=== PATIENT | male | born 1955 | race Caucasian/White ===

== ENCOUNTER 2018-10-09 17:23 | Emergency (ER) | payer MEDICARE ==
[~2018-10-09] VITALS: Ht 170.2 cm; Wt 81.6 kg
--- NOTE | 2018-10-09 17:54 | PHYS DOC ---
Past Medical History Past Medical History: Other Additional Past Medical Histor: blood clots (TON APARICIO) Past Surgical History: No Surgical History (TON APARICIO) Alcohol Use: Heavy Drug Use: None (TON APARICIO) Adult General Chief Complaint Chief Complaint: UPPER EXTREMITY INJURY HPI HPI Patient is a 62 year old female presents to the ED complaining of left elbow injury times one hour ago. Patient states he was working in the yard and tripped over a pick in the yard. States he landed on his left elbow. Describes his pain as sharp. Rates the pain as 7 out of 10. States he has pain with full extension. Denies fever, head/neck injury, LOC, vision changes, difficulty walking, nausea/vomiting, symptoms prior to fall. (TON APARICIO) Review of Systems Review of Systems Constitutional: Denies fever or chills [] Eyes: Denies change in visual acuity, redness, or eye pain [] HENT: Denies nasal congestion or sore throat [] Respiratory: Denies cough or shortness of breath [] Cardiovascular: No additional information not addressed in HPI [] GI: Denies abdominal pain, nausea, vomiting, bloody stools or diarrhea [] : Denies dysuria or hematuria [] Musculoskeletal: Complains of elbow injury. Denies back pain. Integument: Denies rash or skin lesions [] Neurologic: Denies headache, focal weakness or sensory changes [] All other systems were reviewed and found to be within normal limits, except as documented in this note. (TON APARICIO) Allergies Allergies Allergies Coded Allergies Type Severity Reaction Last Updated Verified No Known Drug Allergies 03/21/14 No (DANIELLE OSUNA DO) Physical Exam Physical Exam Constitutional: Well developed, well nourished, no acute distress, non-toxic appearance. [] HENT: Normocephalic, atraumatic. Neck: Normal range of motion, no tenderness, supple, no stridor. [] Cardiovascular:Heart rate regular rhythm, no murmur [] Lungs & Thorax: Bilateral breath sounds clear to auscultation [] Skin: Warm, dry, no erythema, no rash. [] Back: No tenderness, no CVA tenderness. [] Extremities: mild left posterior elbow tenderness/swelling, no cyanosis, no clubbing, Pain with full extension of left elbow. no edema. No abrasion or laceration.[] Neurologic: Alert and oriented X 3, normal motor function, normal sensory function, no focal deficits noted. [] Psychologic: Affect normal, judgement normal, mood normal. [] (TON APARICIO) Current Patient Data Vital Signs Vital Signs Date Time Temp Pulse Resp B/P (MAP) Pulse Ox O2 Delivery O2 Flow Rate FiO2 10/09/18 18:38 99.1 79 16 128/74 (92) 96 Room Air 99.1 (DANIELLE OSUNA DO) EKG EKG [] (TON APARICIO) Radiology/Procedures Radiology/Procedures []PROCEDURE: ELBOW LEFT 3V Left elbow x-rays 3 views HISTORY: Left elbow injury. FINDINGS: Dystrophic calcification posterior of the humerus could be due to triceps brachii tendinopathy lobe which is soft tissue swelling of the posterior elbow overlying the olecranon which could be traumatic or due to tendon injury or infection. Slight elevation of the fat pads which could indicate the presence of a joint effusion. Small spur of the ulna olecranon. Small well-defined ossicle lateral humeral epicondyles could be reflective of chronic tendinitis. No fracture or dislocation evident. IMPRESSION: 1. No fracture evident. There is mild elevation of the fat pads suggesting the presence of a joint effusion, and a radiographically occult hairline fracture attributable for this effusion is not excluded. 2. Posterior elbow soft tissue swelling overlying the ulna olecranon and triceps brachii tendon could be posttraumatic, tendon injury or infectious. There is dystrophic calcification of the tendon likely indicating tendinosis. (TON APARICIO) Course & Med Decision Making Course & Med Decision Making Pertinent Labs and Imaging studies reviewed. (See chart for details) []Discussed imaging findings with patient. Patient's pain improved in the ED. Splint placed. NV intact post placement. Discussed follow-up with orthopedics early next week. Provided contact information/education. Discussed reasons to return to the ED. Patient understands and agrees with plan. (TON APARICIO) Dragon Disclaimer Dragon Disclaimer This electronic medical record was generated, in whole or in part, using a voice recognition dictation system. (TON APARICIO) Departure Departure Impression: Primary Impression: Elbow fracture, left Disposition: 01 HOME, SELF-CARE Condition: IMPROVED Referrals: MIRTA DOBBS MD (PCP) JEFFRY HERNANDEZ MD Patient Instructions: Elbow Fracture, Simple Scripts Hydrocodone/Apap 5-325 (NORCO 5-325 TABLET) 1 Each Tablet 1 TAB PO BID for 5 Days, #10 TAB Prov: TON APARICIO 10/09/18 Attending Signature Attending Signature I have reviewed the PA/[employer] OFFICER's note and plan of care. I was available for consultation as needed during the patient's visit in the emergency department. I agree with the clinical impression, plan, and disposition. (DANIELLE OSUNA DO) TON APARICIO Oct 09, 2018 17:54 DANIELLE OSUNA DO Oct 13, 2018 15:14
--- NOTE | 2018-10-09 18:12 | RAD ---
Left elbow x-rays 3 views HISTORY: Left elbow injury. FINDINGS: Dystrophic calcification posterior of the humerus could be due to triceps brachii tendinopathy lobe which is soft tissue swelling of the posterior elbow overlying the olecranon which could be traumatic or due to tendon injury or infection. Slight elevation of the fat pads which could indicate the presence of a joint effusion. Small spur of the ulna olecranon. Small well-defined ossicle lateral humeral epicondyles could be reflective of chronic tendinitis. No fracture or dislocation evident. IMPRESSION: 1. No fracture evident. There is mild elevation of the fat pads suggesting the presence of a joint effusion, and a radiographically occult hairline fracture attributable for this effusion is not excluded. 2. Posterior elbow soft tissue swelling overlying the ulna olecranon and triceps brachii tendon could be posttraumatic, tendon injury or infectious. There is dystrophic calcification of the tendon likely indicating tendinosis. Electronically signed by: Brendan Roe MD (10/09/2018 6:09 PM) [facility]
[2018-10-09] MEDS ORDERED: HYDR-3164 PO (18:24)
[2018-10-09 18:38] VITALS: BP 128/74
== END 2018-10-09 18:50 | disposition home or self-care (01) ==
LOC: ER 17:23
DX: S42.402A Unspecified fracture of lower end of left humerus, initial encounter for closed fracture (principal); F10.20 Alcohol dependence, uncomplicated; Y90.9 Presence of alcohol in blood, level not specified; W22.8XXA Striking against or struck by other objects, initial encounter; Y93.89 Activity, other specified; Y92.096 Garden or yard of other non-institutional residence as the place of occurrence of the external cause; Y99.8 Other external cause status
CPT/HCPCS: 29105; 73080; 99284-25

== ENCOUNTER 2019-11-20 15:18 | Inpatient (IN) | payer MEDICARE ==
[2019-11-20] VITALS (9 sets, daily range): BP systolic 121–166; BP diastolic 64–92
[~2019-11-20] VITALS: Ht 170.2 cm; Wt 77.8 kg
[~2019-11-20 15:18] MED LIST: HYDR-3164 PO
[2019-11-20 15:57] LABS: BASO # 0.1 x10^3/uL (0.0-0.2); BASO % 1 % (0-3); EOS # 0.1 x10^3/uL (0.0-0.7); EOS % 1 % (0-3); HEMATOCRIT 39.7 % (39.0-53.0); HEMOGLOBIN 13.9 g/dL (13.0-17.5); LYMPH # 1.6 x10^3/uL (1.0-4.8); LYMPH % 33 % (24-48); MEAN CORPUSCULAR HEMOGLOBIN 37 pg (25-35); MEAN CORPUSCULAR HGB CONC 35 g/dL (31-37); MEAN CORPUSCULAR VOLUME 107 fL (79-100); MONO # 0.6 x10^3/uL (0.0-1.1); MONO % 11 % (0-9); NEUT # 2.7 x10^3/uL (1.8-7.7); NEUT % 54 % (31-73); PLATELET COUNT 167 x10^3/uL (140-400); RED BLOOD COUNT 3.71 x10^6/uL (4.30-5.70)
[2019-11-20 16:03] LABS: CREATININE 1.2 mg/dL (0.7-1.3); GFR 61.1; POTASSIUM 3.9 mmol/L (3.5-5.1)
[2019-11-20 16:04] LABS: PROTHROMBIN TIME PATIENT 13.4 SEC (11.7-14.0)
[2019-11-20 16:07] LABS: D-DIMER 1.26 ug/mlFEU (0.00-0.50)
[2019-11-20 16:09] LABS: ALBUMIN 3.2 g/dL (3.4-5.0); ALBUMIN/GLOBULIN RATIO 0.7 (1.0-1.7); TOTAL BILIRUBIN 0.5 mg/dL (0.2-1.0); TOTAL PROTEIN 7.8 g/dL (6.4-8.2)
[2019-11-20] MEDS ORDERED: dilTIAZem IV PUSH 25 MG/5 ML VIAL IVP ONE (17:00)
[2019-11-20] MEDS ORDERED: DILTIAZEM HCL 125 MG in IV NORMAL SALINE 100ML 100 ML IV PRN (17:00)
--- NOTE | 2019-11-20 17:05 | PHYS DOC ---
Past Medical History Past Medical History: DVT, Other Additional Past Medical Histor: blood clots Past Surgical History: No Surgical History Additional Past Surgical Histo: 2 FILTERS FOR BLOOD CLOTS Smoking Status: Never Smoker Alcohol Use: Heavy Drug Use: None General Adult EDM: Chief Complaint: MEDICATION REFILL HPI: HPI: Patient is a 64 year old male who presents to the emergency department with complaints of being out of his Coumadin for the last 3 days. Patient states that he is concerned that he might have a blood clot in both of his legs. He flew to this area from [place] approximately 3 days ago. He states that both of his legs are aching and that they feel swollen for the last 2 days. Patient reports that he usually takes 5 mg of Coumadin every day. He reports a history of atrial fibrillation but states that he does not take any medication to control his atrial fibrillation. Patient denies any shortness of breath, chest pain, palpitations, fever, cough, nausea, vomiting, diarrhea, abdominal pain, rash, sore throat, body aches, or fatigue. He denies any known exposure to COVID-19. Patient currently rates his pain a 5 out of 10 on the pain scale, he denies any alleviating factors or radiation of the pain. He reports that the pain is constant and increases with weightbearing. Review of Systems: Review of Systems: Constitutional: Denies fever or chills. [] Eyes: Denies change in visual acuity. [] HENT: Denies nasal congestion or sore throat. [] Respiratory: Denies cough or shortness of breath. [] Cardiovascular: Denies chest pain or edema. [] GI: Denies abdominal pain, nausea, vomiting, or diarrhea. [] : Denies dysuria. [] Musculoskeletal: See HPI Integument: Denies rash. [] Neurologic: Denies headache, focal weakness or sensory changes. [] Lymphatic: Denies swollen glands. [] Psychiatric: Denies depression or anxiety. [] Heart Score: Risk Factors: Risk Factors: DM, Current or recent (<one month) smoker, HTN, HLP, family history of CAD, obesity. Risk Scores: Score 0 - 3: 2.5% MACE over next 6 weeks - Discharge Home Score 4 - 6: 20.3% MACE over next 6 weeks - Admit for Clinical Observation Score 7 - 10: 72.7% MACE over next 6 weeks - Early Invasive Strategies Current Medications: Current Medications Medications (Trade) Dose Ordered Sig/Eddie Start Time Stop Time Status Last Admin Dose Admin Diltiazem HCl (Cardizem Iv Push) 10 mg 1X ONCE 11/20/19 17:00 11/20/19 17:01 DC Diltiazem HCl 125 mg/Sodium Chloride 125 ml @ 5 mls/hr CONT PRN 11/20/19 17:00 Info (CONTRAST GIVEN -- Rx MONITORING) 1 each PRN DAILY PRN 11/20/19 17:15 11/22/19 17:14 Iohexol (Omnipaque 350 Mg/ml) 100 ml 1X ONCE 11/20/19 17:15 11/20/19 17:16 Allergies: Allergies: Allergies Coded Allergies Type Severity Reaction Last Updated Verified No Known Drug Allergies 03/21/14 No Physical Exam: PE: Constitutional: Well developed, well nourished, no acute distress, non-toxic appearance. [] HENT: Normocephalic, atraumatic, bilateral external ears normal, nose normal. [] Eyes: PERRLA, EOMI, conjunctiva normal, no discharge. [] Neck: Normal range of motion, no stridor. [] Cardiovascular:Heart rate irregular tachycardic rhythm Lungs & Thorax: Lungs CTA, respirations even and unlabored, no retractions, no respiratory distress Abdomen: soft, no tenderness Skin: Warm, dry, no erythema, no rash. [] Extremities: BLE: 2+ edema, no erythema, no warmth, 2+ pedal pulses bilaterally, no cyanosis, ROM intact Neurologic: Alert and oriented X 3, no focal deficits noted. [] Psychologic: Affect normal, judgement normal, mood normal. [] Current Patient Data: Labs: Laboratory Tests Test 11/20/19 15:45 White Blood Count 5.0 x10^3/uL (4.0-11.0) Red Blood Count 3.71 x10^6/uL (4.30-5.70) L Hemoglobin 13.9 g/dL (13.0-17.5) Hematocrit 39.7 % (39.0-53.0) Mean Corpuscular Volume 107 fL (79-100) H Mean Corpuscular Hemoglobin 37 pg (25-35) H Mean Corpuscular Hemoglobin Concent 35 g/dL (31-37) Red Cell Distribution Width 16.0 % (11.5-14.5) H Platelet Count 167 x10^3/uL (140-400) Neutrophils (%) (Auto) 54 % (31-73) Lymphocytes (%) (Auto) 33 % (24-48) Monocytes (%) (Auto) 11 % (0-9) H Eosinophils (%) (Auto) 1 % (0-3) Basophils (%) (Auto) 1 % (0-3) Neutrophils # (Auto) 2.7 x10^3/uL (1.8-7.7) Lymphocytes # (Auto) 1.6 x10^3/uL (1.0-4.8) Monocytes # (Auto) 0.6 x10^3/uL (0.0-1.1) Eosinophils # (Auto) 0.1 x10^3/uL (0.0-0.7) Basophils # (Auto) 0.1 x10^3/uL (0.0-0.2) Prothrombin Time 13.4 SEC (11.7-14.0) Prothrombin Time INR 1.1 (0.8-1.1) Activated Partial Thromboplast Time 27 SEC (24-38) D-Dimer (Rin) 1.26 ug/mlFEU (0.00-0.50) H Sodium Level 143 mmol/L (136-145) Potassium Level 3.9 mmol/L (3.5-5.1) Chloride Level 104 mmol/L (98-107) Carbon Dioxide Level 28 mmol/L (21-32) Anion Gap 11 (6-14) Blood Urea Nitrogen 12 mg/dL (8-26) Creatinine 1.2 mg/dL (0.7-1.3) Estimated GFR (Cockcroft-Gault) 61.1 BUN/Creatinine Ratio 10 (6-20) Glucose Level 96 mg/dL (70-99) Calcium Level 9.0 mg/dL (8.5-10.1) Total Bilirubin 0.5 mg/dL (0.2-1.0) Aspartate Amino Transferase (AST) 29 U/L (15-37) Alanine Aminotransferase (ALT) 20 U/L (16-63) Alkaline Phosphatase 106 U/L (46-116) Total Protein 7.8 g/dL (6.4-8.2) Albumin 3.2 g/dL (3.4-5.0) L Albumin/Globulin Ratio 0.7 (1.0-1.7) L Laboratory Tests 11/20/19 15:45 Laboratory Tests 11/20/19 15:45 EKG: EK-A. fib rate of 122, no STEMI read by Dr. Nur[] Radiology/Procedures: Radiology/Procedures: PROCEDURE: VENOUS LOWER EXT BILATERAL Bilateral lower extremity venous doppler ultrasound History: Bilateral calf pain, off Coumadin for 3 days, history of pulmonary embolism and DVT Comparison: None Findings: Multiple grayscale, color, and duplex spectral analysis sonographic images were acquired of the bilateral lower extremity veins to evaluate for the presence of DVT. There is abnormal nonocclusive echogenicity in the bilateral common femoral veins extending through the superficial femoral veins bilaterally, also on the left involving the profunda femoris vein and popliteal vein. There is color flow demonstrated bilateral calf veins. There is a left groin lymph node about 3 x 1.8 x 0.8 cm in size. Impression: 1. There is nonocclusive thrombus bilaterally, left greater than right. There are no previous exams available for comparison and component of the thrombus may be chronic. 2. There is nonspecific left groin lymph node. Critical results were discussed with SALEEM HERNANDEZ at 11/20/2019 5:04 PM.[] PROCEDURE: CT ANGIOGRAPHY CHEST CTA scan of the Chest with Contrast (Pulmonary Embolism protocol) 11/20/2019 Clinical History: Elevated d-dimer. Tachycardia. DVT. Technique: After the intravenous administration of 100 cc of Omnipaque 350, contiguous, 0.625 mm axial sections were obtained through the chest. 2 mm axial and 3D MIP coronal and sagittal reconstructed images were obtained. One or more of the following individualized dose reduction techniques were utilized for this study: 1. Automated exposure control. 2. Adjustment of the mA and/or kV according to patient size. 3. Use of iterative reconstruction technique. Findings: Comparison is made to a CT scan of the chest dated 06/09/2010. No filling defect is seen within the major branches of either pulmonary artery. There is no CT evidence of pulmonary embolism. The heart is mildly enlarged. Atherosclerotic calcification of the thoracic aorta is seen. The thoracic aorta is mildly tortuous but tapers normally. Prominent hilar and mediastinal lymph nodes are seen which measure 1 to 1.7 cm in size. They have not significantly changed. A 6 mm calcified granuloma is seen within the left lower lobe. No acute pulmonary infiltrate is seen. No pneumothorax or pleural effusion is noted. Images through the upper abdomen demonstrate an IVC filter noted in place. Impression: There is no CT evidence of pulmonary embolism. Course & Med Decision Making: Course & Med Decision Making Pertinent Labs and Imaging studies reviewed. (See chart for details) 64-year-old male presented to the emergency department with complaints of bilateral lower extremity swelling concerns of a DVT. He also reported that he has been out of his Coumadin for the last 3 days and had recently flown to the area from [place]. CBC is unremarkable, CMP is also unremarkable. PT/INR revealed a non- therapeutic INR, patient's d-dimer is 1.26. Ultrasound of bilateral lower extremities reveals a nonocclusive thrombus of bilateral lower extremities. CT angios was negative for PE. The patient's EKG revealed atrial fibrillation with a rate in the 120s. Patient was given 10 mg of IV Cardizem followed by a Cardizem drip. [id number] with Dr. José who is the admitting physician, and care was assumed following discussion of patient. Will admit patient for bilateral DVTs and A. fib RVR. Will initiate heparin protocol. Informed Dr. Crump that patient had been given 10 mg of Cardizem IV followed by a Cardizem drip to titrate. Patient's vital signs stable. Patient remains afebrile, appears nontoxic, respirations even and unlabored. Patient will be admitted to the CVC floor. Patient's case and plan of care also discussed with Dr. Nur [] She Disclaimer: She Disclaimer: This electronic medical record was generated, in whole or in part, using a voice recognition dictation system. Departure Departure Impression: Primary Impression: Atrial fibrillation with RVR Additional Impression: DVT of lower extremity, bilateral Qualified Codes: I82.403 - Acute embolism and thrombosis of unspecified deep veins of lower extremity, bilateral Disposition: ADMITTED INPATIENT Admitting Physician: NATALIE (Arnav) Condition: STABLE Referrals: MIRTA DOBBS MD (PCP) Justicifation of Admission Dx: Justifications for Admission: Justification of Admission Dx: Yes CHF: Cardiac Arrhythmias Comments: BLE DVTS, A. fib RVR BOGUSLAW,SALEEM D [employer] Nov 20, 2019 17:05
--- NOTE | 2019-11-20 17:08 | RAD ---
Bilateral lower extremity venous doppler ultrasound History: Bilateral calf pain, off Coumadin for 3 days, history of pulmonary embolism and DVT Comparison: None Findings: Multiple grayscale, color, and duplex spectral analysis sonographic images were acquired of the bilateral lower extremity veins to evaluate for the presence of DVT. There is abnormal nonocclusive echogenicity in the bilateral common femoral veins extending through the superficial femoral veins bilaterally, also on the left involving the profunda femoris vein and popliteal vein. There is color flow demonstrated bilateral calf veins. There is a left groin lymph node about 3 x 1.8 x 0.8 cm in size. Impression: 1. There is nonocclusive thrombus bilaterally, left greater than right. There are no previous exams available for comparison and component of the thrombus may be chronic. 2. There is nonspecific left groin lymph node. Critical results were discussed with SALEEM HERNANDEZ at 11/20/2019 5:04 PM. Electronically signed by: Dirk Zuniga MD (11/20/2019 5:05 PM) [id number]
[2019-11-20] MEDS ORDERED: CONTRAST GIVEN. MC PRN (17:15)
[2019-11-20] MEDS ORDERED: IOHEXOL 350 MG/ML 100 ML VIAL. IV ONE (17:15)
[2019-11-20] MEDS ORDERED: HEPARIN 25,000UTS/250ML PREMIX 250 ML IV PRN (17:30)
[2019-11-20] MEDS ORDERED: HEPARIN for IV BOLUS 10,000 UNIT/10 ML VIAL. IV PRN ×2 (17:30)
--- NOTE | 2019-11-20 17:53 | RAD ---
CTA scan of the Chest with Contrast (Pulmonary Embolism protocol) 11/20/2019 Clinical History: Elevated d-dimer. Tachycardia. DVT. Technique: After the intravenous administration of 100 cc of Omnipaque 350, contiguous, 0.625 mm axial sections were obtained through the chest. 2 mm axial and 3D MIP coronal and sagittal reconstructed images were obtained. One or more of the following individualized dose reduction techniques were utilized for this study: 1. Automated exposure control. 2. Adjustment of the mA and/or kV according to patient size. 3. Use of iterative reconstruction technique. Findings: Comparison is made to a CT scan of the chest dated 06/09/2010. No filling defect is seen within the major branches of either pulmonary artery. There is no CT evidence of pulmonary embolism. The heart is mildly enlarged. Atherosclerotic calcification of the thoracic aorta is seen. The thoracic aorta is mildly tortuous but tapers normally. Prominent hilar and mediastinal lymph nodes are seen which measure 1 to 1.7 cm in size. They have not significantly changed. A 6 mm calcified granuloma is seen within the left lower lobe. No acute pulmonary infiltrate is seen. No pneumothorax or pleural effusion is noted. Images through the upper abdomen demonstrate an IVC filter noted in place. Impression: There is no CT evidence of pulmonary embolism. Electronically signed by: True Valentine MD (11/20/2019 5:51 PM) [id number]
--- NOTE | 2019-11-20 18:23 | HP ---
ADMIT DATE: 11/20/2019 CHIEF COMPLAINT: Tachycardia. HISTORY OF PRESENT ILLNESS: The patient is a pleasant middle-aged male who just came here from [place]. He states he has a history of DVTs chronically and he has a history of PE prior to this as well. He also has a history of chronic anticoagulation, is normally on Coumadin, but he ran out and so has not been taking it for some time. While in the ER, he has got bilateral DVTs. His INR is only 1.1. I discussed the case with ER physician. We are going to admit the patient and getting re-anticoagulation. PAST MEDICAL HISTORY: Hypertension, hyperlipidemia, AFib with RVR, chronic anticoagulation, noncompliance, DVTs, PEs, 2 filters, alcohol abuse. ALLERGIES: None. FAMILY HISTORY: Diabetes and DVTs. SOCIAL HISTORY: Does not smoke. He drinks heavily. MEDICATIONS: Reviewed, please refer to the MRAD. REVIEW OF SYSTEMS: GENERAL: No history of weight change, weakness or fevers. SKIN: No bruising, hair changes or rashes. EYES: No blurred, double or loss of vision. NOSE AND THROAT: No history of nosebleeds, hoarseness or sore throat. HEART: He complains of palpitations. LUNGS: Denies cough, hemoptysis, wheezing or shortness of breath. GASTROINTESTINAL: Denies changes in appetite, nausea, vomiting, diarrhea or constipation. GENITOURINARY: No history of frequency, urgency, hesitancy or nocturia. NEUROLOGIC: Denies history of numbness, tingling, tremor or weakness. PSYCHIATRIC: No history of panic, anxiety or depression. ENDOCRINE: No history of heat or cold intolerance, polyuria or polydipsia. EXTREMITIES: Denies muscle weakness, joint pain, pain on walking or stiffness. PHYSICAL EXAMINATION: VITALS: Within normal limits and are stable. GENERAL: No apparent distress. Alert and oriented. HEENT: Normal cephalic atraumatic, external auditory canals are patent EYES: Extraocular muscles are intact, pupils are equally round and reactive to light and accommodation MUSCULOSKELETAL: Well developed, well nourished, good range of motion ENDOCRINE: No thyromegaly was palpated LYMPHATICS: No cervical chain or axillary nodes were noted HEMATOPOIETIC: No bruising NECK: Supple, no JVD, no thyromegaly was noted. LUNGS: Clear to auscultation in all lung alonso without rhonchi or wheezing. HEART: He has got irregular heart rate at 104 beats per minute. ABDOMEN: Soft, nontender. Positive bowel sounds no organomegaly, normal bowel sounds. EXTREMITIES: Without any cyanosis, clubbing, or edema. Pedal pulses intact, Homans sign is negative. NEUROLOGIC: Normal speech, normal tone. A & O x3, moves all extremities, no obvious focal deficits. PSYCHIATRIC: Normal affect, normal mood. Stable. SKIN: No ulcerations or rashes, good skin turgor, no jaundice. VASCULAR: Good capillary refill, neurovascular bundle appears to be intact. ASSESSMENT AND PLAN: Noncompliance with his anticoagulation, bilateral deep venous thromboses, atrial fibrillation with rapid ventricular response. The patient has been admitted. We will start heparin protocol. Consult Cardiology. Roni blackwell. We will try to get him back on his home meds. Coumadin per pharmacy. Full code. ISRAEL COLEMAN DO DR: SASCHA/michael JOB#: [id number] / [id number]
[2019-11-20] MEDS ORDERED: WARFARIN 7.5 MG TABLET. PO ONE (18:30)
[2019-11-20] MEDS ORDERED: MORPHINE SULFATE 4 MG/ML VIAL. IV ONE (19:00)
[2019-11-20] MEDS ORDERED: ONDANSETRON PF 4 MG/2 ML VIAL. IV ONE (19:00)
--- NOTE | 2019-11-20 20:30 | NUR ---
PT ADMITTED [id number] WITH AFIB RVR, AND BILAT DVT TO LWR EXTR. ADMISSION PACKET GIVEN ORIENTED TO UNIT STAFF AND POC. PT ON CARDIZEM AND HEPARIN GTT. WILL CONT TO MONITOR PT STATUS AND SAFETY. PMRN
[2019-11-21] VITALS (7 sets, daily range): BP systolic 138–155; BP diastolic 79–98
[2019-11-21] MEDS ORDERED: WARF7.5T45 PO (01:04)
[2019-11-21 09:06] LABS: PROTHROMBIN TIME PATIENT 16.3 SEC (11.7-14.0)
--- NOTE | 2019-11-21 09:57 | PDOC2 ---
CONSULT Date of Consult Date of Consult DATE: 11/21/19 TIME: 09:57 Reason for Consult Reason for Consult: Atrial fibrillation Referring Physician Referring Physician: Dr. 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 He flew back to [place] 3 days ago and presented to the ED stating that he was out of Coumadin, needed refill and also complained of bilateral lower extremity aching pain and edema. He was also noted to be in atrial fibrillation and admitted for further management. However, review of EKG and telemetry rhythm strips did not show any episodes of atrial fibrillation. He had sinus rhythm with frequent PACs resulting in the irregularity of rhythm. Patient did state that he was told he might have atrial fibrillation in the past, placed on medications for 1 month but was stopped after subsequent work-up came back negative. He denied any chest pain, orthopnea/PND, palpitations or syncope. Past Medical History Past Medical History DVT/PE s/p IVCF Cardiac arrhythmia Past Surgical History Past Surgical History: No pertinent history Family History Family History Diabetes Social History Social History Patient has history of heavy alcohol use, denies any smoking or drug use Current Problem List Problem List Problems Medical Problems: (1) Atrial fibrillation with RVR Status: Acute (2) DVT of lower extremity, bilateral Status: Acute Current Medications Current Medications Current Medications Diltiazem HCl (Cardizem Iv Push) 10 mg 1X ONCE IVP Last administered on 11/20/19at 17:14; Start 11/20/19 at 17:00; Stop 11/20/19 at 17:01; Status DC Diltiazem HCl 125 mg/Sodium Chloride 125 ml @ 5 mls/hr CONT PRN IV SEE I/O RECORD Last administered on 11/20/19at 17:19; Start 11/20/19 at 17:00 Iohexol (Omnipaque 350 Mg/ml) 100 ml 1X ONCE IV Last administered on 11/20/19at 17:29; Start 11/20/19 at 17:15; Stop 11/20/19 at 17:16; Status DC Info (CONTRAST GIVEN -- Rx MONITORING) 1 each PRN DAILY PRN MC SEE COMMENTS; Start 11/20/19 at 17:15; Stop 11/22/19 at 17:14 Heparin Sodium/ Dextrose 250 ml @ 0 mls/hr CONT PRN IV PER PROTOCOL Last administered on 11/20/19at 18:08; Start 11/20/19 at 17:30 Heparin Sodium (Porcine) (Heparin Sodium) 2,300 unit PRN Q6HRS PRN IV FOR UFH LEVEL LESS THAN 0.2 Last administered on 11/21/19at 01:50; Start 11/20/19 at 17:30 Heparin Sodium (Porcine) (Heparin Sodium) 1,150 unit PRN Q6HRS PRN IV FOR UFH LEVEL 0.2 - 0.29; Start 11/20/19 at 17:30 Warfarin Sodium (Coumadin Per Pharmacy) 1 each PRN DAILY PRN MC SEE COMMENTS Last administered on 11/20/19at 18:15; Start 11/20/19 at 18:15 Warfarin Sodium (Coumadin) 7.5 mg 1X WARF ONCE PO Last administered on 11/20/19at 19:07; Start 11/20/19 at 18:30; Stop 11/20/19 at 18:46; Status DC Morphine Sulfate (Morphine Sulfate) 4 mg 1X ONCE IV Last administered on 11/20/19at 19:14; Start 11/20/19 at 19:00; Stop 11/20/19 at 19:01; Status DC Ondansetron HCl (Zofran) 4 mg 1X ONCE IV Last administered on 11/20/19at 19:12; Start 11/20/19 at 19:00; Stop 11/20/19 at 19:01; Status DC Active Scripts Active [place] 5-325 Tablet (Acetaminophen/Hydrocodone Bitart) 1 Each Tablet 1 Tab PO BID 5 Days Reported Warfarin Sodium 7.5 Mg Tablet 7.5 Mg PO DAILY Allergies Allergies: Coded Allergies: No Known Drug Allergies (Unverified , 03/21/14) ROS PSYCHOLOGICAL ROS: No: Hallucinations Eyes: No Loss of vision HEENT: No: Epistaxis Respiratory: No: Hemoptysis Cardiovascular: No Chest Pain, No Palpitations Gastrointestinal: No Vomiting Genitourinary: No Hematuria Neurological: No Seizures Skin: No Rash Physical Exam General: Alert, No acute distress HEENT: Atraumatic Lungs: Clear to auscultation Heart: Other (Heart rate slightly irregular) Abdomen: Soft Extremities: No edema Psych/Mental Status: Mood NL Vitals VITALS Vital Signs Date Time Temp Pulse Resp B/P (MAP) Pulse Ox O2 Delivery O2 Flow Rate FiO2 11/21/19 07:00 99.0 114 20 142/95 (111) 97 Room Air 99.0 Labs Labs Laboratory Tests Test 11/20/19 15:45 11/21/19 00:30 11/21/19 08:00 White Blood Count 5.0 x10^3/uL (4.0-11.0) Red Blood Count 3.71 x10^6/uL (4.30-5.70) Hemoglobin 13.9 g/dL (13.0-17.5) Hematocrit 39.7 % (39.0-53.0) Mean Corpuscular Volume 107 fL (79-100) Mean Corpuscular Hemoglobin 37 pg (25-35) Mean Corpuscular Hemoglobin Concent 35 g/dL (31-37) Red Cell Distribution Width 16.0 % (11.5-14.5) Platelet Count 167 x10^3/uL (140-400) Neutrophils (%) (Auto) 54 % (31-73) Lymphocytes (%) (Auto) 33 % (24-48) Monocytes (%) (Auto) 11 % (0-9) Eosinophils (%) (Auto) 1 % (0-3) Basophils (%) (Auto) 1 % (0-3) Neutrophils # (Auto) 2.7 x10^3/uL (1.8-7.7) Lymphocytes # (Auto) 1.6 x10^3/uL (1.0-4.8) Monocytes # (Auto) 0.6 x10^3/uL (0.0-1.1) Eosinophils # (Auto) 0.1 x10^3/uL (0.0-0.7) Basophils # (Auto) 0.1 x10^3/uL (0.0-0.2) Prothrombin Time 13.4 SEC (11.7-14.0) 16.3 SEC (11.7-14.0) Prothromb Time International Ratio 1.1 (0.8-1.1) 1.4 (0.8-1.1) Activated Partial Thromboplast Time 27 SEC (24-38) D-Dimer (Rin) 1.26 ug/mlFEU (0.00-0.50) Sodium Level 143 mmol/L (136-145) Potassium Level 3.9 mmol/L (3.5-5.1) Chloride Level 104 mmol/L (98-107) Carbon Dioxide Level 28 mmol/L (21-32) Anion Gap 11 (6-14) Blood Urea Nitrogen 12 mg/dL (8-26) Creatinine 1.2 mg/dL (0.7-1.3) Estimated GFR (Cockcroft-Gault) 61.1 BUN/Creatinine Ratio 10 (6-20) Glucose Level 96 mg/dL (70-99) Calcium Level 9.0 mg/dL (8.5-10.1) Total Bilirubin 0.5 mg/dL (0.2-1.0) Aspartate Amino Transf (AST/SGOT) 29 U/L (15-37) Alanine Aminotransferase (ALT/SGPT) 20 U/L (16-63) Alkaline Phosphatase 106 U/L (46-116) Total Protein 7.8 g/dL (6.4-8.2) Albumin 3.2 g/dL (3.4-5.0) Albumin/Globulin Ratio 0.7 (1.0-1.7) Heparin Anti-Xa Act, Unfractionated 0.12 IU/mL (0.30-0.70) 0.48 IU/mL (0.30-0.70) Laboratory Tests Test 11/20/19 15:45 11/21/19 00:30 11/21/19 08:00 White Blood Count 5.0 x10^3/uL (4.0-11.0) Red Blood Count 3.71 x10^6/uL (4.30-5.70) Hemoglobin 13.9 g/dL (13.0-17.5) Hematocrit 39.7 % (39.0-53.0) Mean Corpuscular Volume 107 fL (79-100) Mean Corpuscular Hemoglobin 37 pg (25-35) Mean Corpuscular Hemoglobin Concent 35 g/dL (31-37) Red Cell Distribution Width 16.0 % (11.5-14.5) Platelet Count 167 x10^3/uL (140-400) Neutrophils (%) (Auto) 54 % (31-73) Lymphocytes (%) (Auto) 33 % (24-48) Monocytes (%) (Auto) 11 % (0-9) Eosinophils (%) (Auto) 1 % (0-3) Basophils (%) (Auto) 1 % (0-3) Neutrophils # (Auto) 2.7 x10^3/uL (1.8-7.7) Lymphocytes # (Auto) 1.6 x10^3/uL (1.0-4.8) Monocytes # (Auto) 0.6 x10^3/uL (0.0-1.1) Eosinophils # (Auto) 0.1 x10^3/uL (0.0-0.7) Basophils # (Auto) 0.1 x10^3/uL (0.0-0.2) Prothrombin Time 13.4 SEC (11.7-14.0) 16.3 SEC (11.7-14.0) Prothromb Time International Ratio 1.1 (0.8-1.1) 1.4 (0.8-1.1) Activated Partial Thromboplast Time 27 SEC (24-38) D-Dimer (Rin) 1.26 ug/mlFEU (0.00-0.50) Sodium Level 143 mmol/L (136-145) Potassium Level 3.9 mmol/L (3.5-5.1) Chloride Level 104 mmol/L (98-107) Carbon Dioxide Level 28 mmol/L (21-32) Anion Gap 11 (6-14) Blood Urea Nitrogen 12 mg/dL (8-26) Creatinine 1.2 mg/dL (0.7-1.3) Estimated GFR (Cockcroft-Gault) 61.1 BUN/Creatinine Ratio 10 (6-20) Glucose Level 96 mg/dL (70-99) Calcium Level 9.0 mg/dL (8.5-10.1) Total Bilirubin 0.5 mg/dL (0.2-1.0) Aspartate Amino Transf (AST/SGOT) 29 U/L (15-37) Alanine Aminotransferase (ALT/SGPT) 20 U/L (16-63) Alkaline Phosphatase 106 U/L (46-116) Total Protein 7.8 g/dL (6.4-8.2) Albumin 3.2 g/dL (3.4-5.0) Albumin/Globulin Ratio 0.7 (1.0-1.7) Heparin Anti-Xa Act, Unfractionated 0.12 IU/mL (0.30-0.70) 0.48 IU/mL (0.30-0.70) Assessment/Plan Assessment/Plan 1. DVT. Venous duplex scan showed nonocclusive thrombus involving bilateral common femoral and superficial femoral veins. His INR currently subtherapeutic since he ran out of warfarin. This has been resumed since admission. Continue adjustment of the dose for therapeutic INR by pharmacy team. 2. Cardiac arrhythmia. Patient was thought to be in atrial fibrillation but EKG and rhythm strips on telemetry showed sinus rhythm with PACs/PVCs, blocked PACs but did not show any episodes of atrial fibrillation. Patient stated that he was worked up in the past for presumptive diagnosis of atrial fibrillation but work-up apparently came back negative. He was advised to follow-up with a delivery consultant once he gets back to [place] for possible event monitor placement. Thank you for your consultation. STAR BAIN MD Nov 21, 2019 09:57
--- NOTE | 2019-11-21 10:27 | NUR ---
Pt was adamant that he was not going to wait to see the primary doctor and he would leave before eleven. Pt stated that he has had these DVTs for awhile and knows what to do to take care of them. Stated he understood the importance of getting a refill for warfarin and soon as he could. Pt signed AMA form and was escorted to his brother's car by security.
--- NOTE | 2019-11-21 14:47 | PDOC3 ---
Discharge Summary Visit Information Date of Admission: Nov 20, 2019 Date of Discharge: Nov 21, 2019 Admitting Diagnosis: Bilateral DVT Final Diagnosis Problems Medical Problems: (1) Atrial fibrillation with RVR Status: Acute (2) DVT of lower extremity, bilateral Status: Acute Brief Hospital Course Allergies Allergies Coded Allergies Type Severity Reaction Last Updated Verified No Known Drug Allergies 03/21/14 No Vital Signs Vital Signs Date Time Temp Pulse Resp B/P (MAP) Pulse Ox O2 Delivery O2 Flow Rate FiO2 11/21/19 08:00 Room Air 11/21/19 07:00 99.0 114 20 142/95 (111) 97 99.0 Lab Results Laboratory Tests Test 11/20/19 15:45 11/21/19 00:30 11/21/19 08:00 White Blood Count 5.0 x10^3/uL (4.0-11.0) Red Blood Count 3.71 x10^6/uL (4.30-5.70) Hemoglobin 13.9 g/dL (13.0-17.5) Hematocrit 39.7 % (39.0-53.0) Mean Corpuscular Volume 107 fL (79-100) Mean Corpuscular Hemoglobin 37 pg (25-35) Mean Corpuscular Hemoglobin Concent 35 g/dL (31-37) Red Cell Distribution Width 16.0 % (11.5-14.5) Platelet Count 167 x10^3/uL (140-400) Neutrophils (%) (Auto) 54 % (31-73) Lymphocytes (%) (Auto) 33 % (24-48) Monocytes (%) (Auto) 11 % (0-9) Eosinophils (%) (Auto) 1 % (0-3) Basophils (%) (Auto) 1 % (0-3) Neutrophils # (Auto) 2.7 x10^3/uL (1.8-7.7) Lymphocytes # (Auto) 1.6 x10^3/uL (1.0-4.8) Monocytes # (Auto) 0.6 x10^3/uL (0.0-1.1) Eosinophils # (Auto) 0.1 x10^3/uL (0.0-0.7) Basophils # (Auto) 0.1 x10^3/uL (0.0-0.2) Prothrombin Time 13.4 SEC (11.7-14.0) 16.3 SEC (11.7-14.0) Prothromb Time International Ratio 1.1 (0.8-1.1) 1.4 (0.8-1.1) Activated Partial Thromboplast Time 27 SEC (24-38) D-Dimer (Rin) 1.26 ug/mlFEU (0.00-0.50) Sodium Level 143 mmol/L (136-145) Potassium Level 3.9 mmol/L (3.5-5.1) Chloride Level 104 mmol/L (98-107) Carbon Dioxide Level 28 mmol/L (21-32) Anion Gap 11 (6-14) Blood Urea Nitrogen 12 mg/dL (8-26) Creatinine 1.2 mg/dL (0.7-1.3) Estimated GFR (Cockcroft-Gault) 61.1 BUN/Creatinine Ratio 10 (6-20) Glucose Level 96 mg/dL (70-99) Calcium Level 9.0 mg/dL (8.5-10.1) Total Bilirubin 0.5 mg/dL (0.2-1.0) Aspartate Amino Transf (AST/SGOT) 29 U/L (15-37) Alanine Aminotransferase (ALT/SGPT) 20 U/L (16-63) Alkaline Phosphatase 106 U/L (46-116) Total Protein 7.8 g/dL (6.4-8.2) Albumin 3.2 g/dL (3.4-5.0) Albumin/Globulin Ratio 0.7 (1.0-1.7) Heparin Anti-Xa Act, Unfractionated 0.12 IU/mL (0.30-0.70) 0.48 IU/mL (0.30-0.70) Laboratory Tests Test 11/20/19 15:45 11/21/19 00:30 11/21/19 08:00 White Blood Count 5.0 x10^3/uL (4.0-11.0) Red Blood Count 3.71 x10^6/uL (4.30-5.70) Hemoglobin 13.9 g/dL (13.0-17.5) Hematocrit 39.7 % (39.0-53.0) Mean Corpuscular Volume 107 fL (79-100) Mean Corpuscular Hemoglobin 37 pg (25-35) Mean Corpuscular Hemoglobin Concent 35 g/dL (31-37) Red Cell Distribution Width 16.0 % (11.5-14.5) Platelet Count 167 x10^3/uL (140-400) Neutrophils (%) (Auto) 54 % (31-73) Lymphocytes (%) (Auto) 33 % (24-48) Monocytes (%) (Auto) 11 % (0-9) Eosinophils (%) (Auto) 1 % (0-3) Basophils (%) (Auto) 1 % (0-3) Neutrophils # (Auto) 2.7 x10^3/uL (1.8-7.7) Lymphocytes # (Auto) 1.6 x10^3/uL (1.0-4.8) Monocytes # (Auto) 0.6 x10^3/uL (0.0-1.1) Eosinophils # (Auto) 0.1 x10^3/uL (0.0-0.7) Basophils # (Auto) 0.1 x10^3/uL (0.0-0.2) Prothrombin Time 13.4 SEC (11.7-14.0) 16.3 SEC (11.7-14.0) Prothromb Time International Ratio 1.1 (0.8-1.1) 1.4 (0.8-1.1) Activated Partial Thromboplast Time 27 SEC (24-38) D-Dimer (Rin) 1.26 ug/mlFEU (0.00-0.50) Sodium Level 143 mmol/L (136-145) Potassium Level 3.9 mmol/L (3.5-5.1) Chloride Level 104 mmol/L (98-107) Carbon Dioxide Level 28 mmol/L (21-32) Anion Gap 11 (6-14) Blood Urea Nitrogen 12 mg/dL (8-26) Creatinine 1.2 mg/dL (0.7-1.3) Estimated GFR (Cockcroft-Gault) 61.1 BUN/Creatinine Ratio 10 (6-20) Glucose Level 96 mg/dL (70-99) Calcium Level 9.0 mg/dL (8.5-10.1) Total Bilirubin 0.5 mg/dL (0.2-1.0) Aspartate Amino Transf (AST/SGOT) 29 U/L (15-37) Alanine Aminotransferase (ALT/SGPT) 20 U/L (16-63) Alkaline Phosphatase 106 U/L (46-116) Total Protein 7.8 g/dL (6.4-8.2) Albumin 3.2 g/dL (3.4-5.0) Albumin/Globulin Ratio 0.7 (1.0-1.7) Heparin Anti-Xa Act, Unfractionated 0.12 IU/mL (0.30-0.70) 0.48 IU/mL (0.30-0.70) Brief Hospital Course Mr Hinkle is a 63-year-old male with 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 He flew back to [place] 3 days prior to admit and presented to the ED stating that he was out of Coumadin, needed refill and also complained of bilateral lower extremity aching pain and edema. He was also noted to be in atrial fibrillation and admitted for further management. However, review of EKG and telemetry rhythm strips did not show any episodes of atrial fibrillation. He had sinus rhythm with frequent PACs resulting in the irregularity of rhythm. Patient did state that he was told he might have atrial fibrillation in the past, placed on medications for 1 month but was stopped after subsequent work-up came back negative. He denied any chest pain, orthopnea/PND, palpitations or syncope. Seen by cardiology, me for discharge with f/u in [place] Physical examination General: Alert, No acute distress HEENT: Atraumatic Lungs: Clear to auscultation Heart: Other (Heart rate slightly irregular) Abdomen: Soft Extremities: No edema Psych/Mental Status: Mood NL Vital Signs Date Time Temp Pulse Resp B/P (MAP) Pulse Ox O2 Delivery O2 Flow Rate FiO2 11/21/19 07:00 99.0 114 20 142/95 (111) 97 Room Air 99.0 Problem list: DVT. Venous duplex scan showed nonocclusive thrombus involving bilateral common femoral and superficial femoral veins. His INR currently subtherapeutic since he ran out of warfarin. This has been resumed since admission. INR 1.4 at time of patient leaving AMA Macrocytosis - uncertain etiology. B12 pending at time of d/c, but most likely due to his heavy ETOH use Heavy ETOH use - was counseled on cessation offered resources DVT/PE s/p IVCF - see above Cardiac arrhythmia. Patient was thought to be in atrial fibrillation but EKG and rhythm strips on telemetry showed sinus rhythm with PACs/PVCs, blocked PACs but did not show any episodes of atrial fibrillation. Patient stated that he was worked up in the past for presumptive diagnosis of atrial fibrillation but work-up apparently came back negative. He was advised to follow-up with a aviation neuropsychologist once he gets back to [place] for possible event monitor placement. Greater than 30 minutes spent on day of d/c Discharge Information Condition at Discharge: Improved Follow Up: Weeks (1) Disposition/Orders: D/C to Home Scheduled Hydrocodone/[place] 5-325 ([place] 5-325 Tablet) 1 Each Tablet, 1 TAB PO BID for 5 Days, #10 Prescribed by: TON APARICIO PA-C on 10/09/181823 Warfarin Sodium (Warfarin Sodium) 7.5 Mg Tablet, 7.5 MG PO DAILY for BLOOD THIN, (Reported) Entered as Reported by: CHRISTIANO CONNORS on 11/21/19103 Last Action: New Order on 11/21/19103 by CHRISTIANO CONNORS Justicifation of Admission Dx: Justifications for Admission: Justification of Admission Dx: Yes CHF: Cardiac Arrhythmias RUFINA SINCLAIR MD Nov 21, 2019 14:47
--- NOTE | 2019-11-24 05:26 | EKG ---
[facility] [address] [place] [id number] Test Date: 2019-11-20 Test Time: 15:45:14 Pat Name: RAF LUNDBERG Department: Room: Gender: M Manager Of Financial Reporting: : 1955 Requested By: SALEEM HERNANDEZ Order Number: [id number] Reading MD: Measurements Intervals [place] Rate: 122 P: SC: QRS: 38 QRSD: 88 T: 54 QT: 322 QTc: 460 Interpretive Statements IRREGULAR RHYTHM, NO P-WAVE FOUND OTHERWISE NORMAL ECG RI6.01 No previous ECG available for comparison
== END 2019-11-21 10:15 | disposition left against medical advice (07) | DRG 301 ==
LOC: ER 15:18 → 2 SOUTH 19:41
PROVIDERS: ADMIT Internal Medicine; ATTEND Internal Medicine
DX: I82.413 Acute embolism and thrombosis of femoral vein, bilateral (principal); I48.91 Unspecified atrial fibrillation; D75.89 Other specified diseases of blood and blood-forming organs; E78.5 Hyperlipidemia, unspecified; I10 Essential (primary) hypertension; I49.9 Cardiac arrhythmia, unspecified; Z79.01 Long term (current) use of anticoagulants; Z83.3 Family history of diabetes mellitus; Z86.711 Personal history of pulmonary embolism; Z86.718 Personal history of other venous thrombosis and embolism; Z91.14 Patient's other noncompliance with medication regimen; Z91.19 Patient's noncompliance with other medical treatment and regimen; Z53.29 Procedure and treatment not carried out because of patient's decision for other reasons
CPT/HCPCS: 36415; 71275; 80053; 85025; 85379; 85520; 85610; 85730; 93005; 93970; 96365; 96367; 96375; 96376; J1644; J2270; J2405; J3490; Q9967; 99285-25; G0378